=== PATIENT | female | born 1945 | race Two or more races ===

== ENCOUNTER 2017-07-08 12:39 | Outpatient (CLI) | payer OTHER ==
[~2017-07-08 12:39] MED LIST: COREG CR10 MG; CYMBALTA20 MG; METFORMIN HCL500 MG; PLAVIX75 MG; ULTRACET PO
== END 2017-07-08 12:40 | disposition home or self-care (01) ==
LOC: NUCLEAR 12:39
DX: I87.2 Venous insufficiency (chronic) (peripheral) (principal); I73.9 Peripheral vascular disease, unspecified; I82.409 Acute embolism and thrombosis of unspecified deep veins of unspecified lower extremity

== ENCOUNTER 2018-05-24 11:12 | Emergency (ER) | payer OTHER ==
[~2018-05-24] VITALS: Ht 157.5 cm; Wt 95.3 kg
== END 2018-05-24 21:57 | disposition home or self-care (01) ==
LOC: ER 11:12
DX: M94.0 Chondrocostal junction syndrome [Tietze] (principal); F41.8 Other specified anxiety disorders

== ENCOUNTER 2019-05-11 10:37 | Outpatient (CLI) | payer OTHER | END 2019-05-11 13:16 | disposition home or self-care (01) | LOC: RAD 10:37 | DX: J18.0 Bronchopneumonia, unspecified organism (principal) ==

== ENCOUNTER 2019-05-13 13:33 | Outpatient (CLI) | payer OTHER | END 2019-05-13 13:39 | disposition home or self-care (01) | LOC: SONOGRAMA 13:33 → MAMO-SONO 14:15 | DX: E03.8 Other specified hypothyroidism (principal); E04.2 Nontoxic multinodular goiter ==

== ENCOUNTER 2020-02-09 08:07 | Outpatient (CLI) | payer OTHER | END 2020-02-09 12:28 | disposition home or self-care (01) | LOC: SONOGRAMA 08:07 | DX: R10.84 Generalized abdominal pain (principal) ==

== ENCOUNTER 2020-02-29 15:16 | Emergency (ER) | payer OTHER ==
[~2020-02-29] VITALS: Ht 154.9 cm; Wt 72.6 kg
== END 2020-02-29 22:55 | disposition home or self-care (01) ==
LOC: ER 15:16
DX: E86.0 Dehydration (principal); E87.8 Other disorders of electrolyte and fluid balance, not elsewhere classified; F41.8 Other specified anxiety disorders

== ENCOUNTER 2020-06-14 11:54 | Outpatient (CLI) | payer OTHER | END 2020-06-14 11:58 | disposition home or self-care (01) | LOC: MAMO-SONO 11:54 | PROVIDERS: ATTEND Internal Medicine | DX: Z12.31 Encounter for screening mammogram for malignant neoplasm of breast (principal); Z87.898 Personal history of other specified conditions; N60.11 Diffuse cystic mastopathy of right breast; N63.0 Unspecified lump in unspecified breast; I10 Essential (primary) hypertension; M54.5 Low back pain; E55.9 Vitamin D deficiency, unspecified; E78.89 Other lipoprotein metabolism disorders; E11.51 Type 2 diabetes mellitus with diabetic peripheral angiopathy without gangrene; E11.9 Type 2 diabetes mellitus without complications; E66.8 Other obesity; G62.89 Other specified polyneuropathies; M89.8X8 Other specified disorders of bone, other site; E11.42 Type 2 diabetes mellitus with diabetic polyneuropathy; I11.9 Hypertensive heart disease without heart failure; K21.9 Gastro-esophageal reflux disease without esophagitis ==

== ENCOUNTER 2021-11-20 10:17 | Outpatient (CLI) | payer OTHER | END 2021-11-20 13:28 | disposition home or self-care (01) | LOC: MAMO-SONO 10:17 | PROVIDERS: ATTEND Internal Medicine | DX: Z12.31 Encounter for screening mammogram for malignant neoplasm of breast (principal); N60.11 Diffuse cystic mastopathy of right breast ==

== ENCOUNTER 2022-01-24 16:56 | Outpatient (CLI) | payer OTHER | END 2022-01-24 17:01 | disposition home or self-care (01) | LOC: RAD 16:56 | PROVIDERS: ATTEND General Practice | DX: R07.1 Chest pain on breathing (principal) ==

== ENCOUNTER 2022-08-12 13:54 | Emergency (ER) | payer OTHER ==
[~2022-08-12] VITALS: Ht 157.5 cm; Wt 77.1 kg
[2022-08-12] MEDS ORDERED: PROTONIX20 MG PO (14:11)
[2022-08-12] MEDS ORDERED: JANUMET 50-1,01 EACH PO (14:11)
[2022-08-12] MEDS ORDERED: PEPCID AC10 MG (14:12)
[2022-08-12] MEDS ORDERED: ZETIA10 MG (14:12)
[2022-08-12] MEDS ORDERED: ECOTRIN81 MG (14:12)
[2022-08-12] MEDS ORDERED: PRAVASTATIN SOD40 MG PO (14:12)
== END 2022-08-12 16:48 | disposition home or self-care (01) ==
LOC: ER 13:54
DX: R05.9 Cough, unspecified (principal); Z88.8 Allergy status to other drugs, medicaments and biological substances; E11.9 Type 2 diabetes mellitus without complications; Z79.84 Long term (current) use of oral hypoglycemic drugs

== ENCOUNTER 2023-05-13 14:45 | Emergency (ER) | payer OTHER ==
[~2023-05-13] VITALS: Ht 152.4 cm; Wt 79.4 kg
[~2023-05-13 14:45] MED LIST changes: +ECOTRIN81 MG; +JANUMET 50-1,01 EACH PO; +PEPCID AC10 MG; +PRAVASTATIN SOD40 MG PO; +PROTONIX20 MG PO; +ZETIA10 MG
[2023-05-13] MEDS ORDERED: ZANAFLEX2 M1 PO (20:07)
[2023-05-13] MEDS ORDERED: GABAPENTIN100 M2 PO (20:07)
== END 2023-05-13 20:37 | disposition home or self-care (01) ==
LOC: ER 14:45
DX: S29.8XXA Other specified injuries of thorax, initial encounter (principal); W18.39XA Other fall on same level, initial encounter; Y93.89 Activity, other specified; Y92.018 Other place in single-family (private) house as the place of occurrence of the external cause; Z88.8 Allergy status to other drugs, medicaments and biological substances; I10 Essential (primary) hypertension; S39.82XA Other specified injuries of lower back, initial encounter

== ENCOUNTER 2023-07-21 11:42 | Inpatient (IN) | payer OTHER ==
[~2023-07-21] VITALS: Ht 154.9 cm; Wt 68.0 kg
[~2023-07-21 11:42] MED LIST changes: +GABAPENTIN100 M2 PO; +ZANAFLEX2 M1 PO
--- NOTE | 2023-07-21 12:53 | NUR ---
PACIENTE ALERTA Y ORIENTADA X3. SE ENCUENTRA ANÍBAL AL MOMENTO. PACIENTE REFIERE QUE DESDE EL [place] PRESENTA DOLOR EN LA PIERNA DERECHA. SE OBSERVA PIERNA DERECHA INFLAMADA. SE ESTIMAN SIGNOS VITALES Y SE UBICA.
--- NOTE | 2023-07-21 14:05 | NUR ---
PACIENTE ALERTA YORIENTADA X3. DR. NISHANT WARREN DE EVALUACION MEDICA ORDENA ER DUPLEX Y DOPPLER PARA LA PIERNA DERELENA. PERSONAL DE TRANSPORTE LLEVA A PACIENTE PARA ESTUDIO.
[2023-07-21] MEDS ORDERED: ENOXAPARIN SODIUM 60 MG/0.6 ML SYRINGE SUBCUTANEO ONE (17:30)
[2023-07-21] MEDS ORDERED: 0.9 % SODIUM CHLORIDE 1,000 ML IV SCH (18:00)
[2023-07-21] MEDS ORDERED: CEFTRIAXONE SODIUM 2,000 MG in 0.9 % SODIUM CHLORIDE 100 ML IV SCH (18:01)
[2023-07-21] MEDS ORDERED: DEXTROSE 50 % IN WATER 0.5 G/ML DISP.SYRIN IV PRN (18:15)
[2023-07-21] MEDS ORDERED: ACETAMINOPHEN 500 MG GEL..CAP PO PRN (18:15)
[2023-07-21] MEDS ORDERED: INSULIN LISPRO 1,000 UNIT/10 ML UNITS SUBCUTANEO PRN (18:15)
[2023-07-21 19:04] LABS: ABG PH 7.551 (7.35-7.45); ABG pCO2 21.2 mmHg (35-45); BASE EXCESS -1.7 mmol/l; BICARBONATE 18.2 mmol/l (23-25); Tco2 18.8 mmol/l
[2023-07-21 19:05] LABS: allen test SATISFACTORY; o2 21 %; puncture site RADIAL RIGHT
[2023-07-21 20:03] LABS: HEMOGLOBIN 15.1 g/dL (12.0-15.00); MEAN CORPUSCULAR HEMOGLOBIN 29.9 pg (27.00-32.0); MEAN CORPUSCULAR HGB CONC 33.6 g/dl (32.0-36.0); PLATELET COUNT 276 K/uL (150-450); RED BLOOD COUNT 5.05 M/uL (4.00-6.00); RED CELL DISTRIBUTION WIDTH 14.9 % (11.5-14.5)
[2023-07-21 20:35] LABS: ERYTHROCYTE SEDIMENTATION RATE 32 mm/hr
[2023-07-21] MEDS ORDERED: CARVEDILOL 12.5 MG TABLET PO SCH (21:00)
[2023-07-21 21:25] LABS: URINE APPEARANCE Turbid; URINE BILIRRUBIN Negative (NEGATIVE); URINE BLOOD Negative; URINE COLOR Yellow; URINE GLUCOSE Negative (NEGATIVE); URINE LEUKOCYTE Negative; URINE NITRATE Negative; URINE PROTEIN Negative (NEGATIVE); URINE UROBILINOGEN 0.2 E.U./dl
[2023-07-21 21:28] LABS: URINE BACTERIA 52.9 uL (0.0-1933); URINE EPITHELIAL CELLS 5.9 uL (0.0-38.8); URINE WBC 7.5 uL (0.0-23.2)
[2023-07-21 21:38] LABS: URINE RBC 0.1 uL (0.0-20.8)
[2023-07-21 22:32] LABS: ALBUMIN 2.7 gm/dL (3.4-5.0); BILIRUBIN TOTAL 0.35 mg/dL (0.3-1.2); CREATININE SERUM 0.96 mg/dL (0.55-1.02); GFR 56.06; GLOBULINA 3.8 G/DL (2.4-3.5); POTASSIUM 3.84 mEq/L (3.5-5.1); TOTAL PROTEIN 6.5 gm/dL (6.4-8.2)
[2023-07-22] MEDS ORDERED: ENOXAPARIN SODIUM 80 MG/0.8 ML SYRINGE SUBCUTANEO SCH (05:00)
[2023-07-22] MEDS ORDERED: ENOXAPARIN SODIUM 60 MG/0.6 ML SYRINGE SUBCUTANEO SCH (06:00)
[2023-07-22] MEDS ORDERED: ATORVASTATIN CALCIUM 40 MG TABLET PO SCH (09:00)
[2023-07-22] MEDS ORDERED: FAMOTIDINE/PF 20 MG in 0.9 % SODIUM CHLORIDE 8 ML IV PUSH SCH (09:00)
[2023-07-23] MEDS ORDERED: XARELTO15 MG PO (07:37)
== END 2023-07-23 10:33 | disposition home or self-care (01) | DRG 603 ==
LOC: ER 11:42 → MEDI 18:14
PROVIDERS: General Practice; ADMIT Internal Medicine; ATTEND Internal Medicine
PROC: B44HZZZ Ultrasonography of Bilateral Lower Extremity Arteries (ICD-10-PCS; principal; 2023-07-21)
PROC: B54DZZZ Ultrasonography of Bilateral Lower Extremity Veins (ICD-10-PCS; 2023-07-21)
DX: L03.115 Cellulitis of right lower limb (principal); I82.421 Acute embolism and thrombosis of right iliac vein; I87.2 Venous insufficiency (chronic) (peripheral)